=== PATIENT | male | born 1985 | race Two or more races ===

== ENCOUNTER 2023-04-07 10:48 | Emergency (ER) | payer MEDICAID ==
[~2023-04-07] VITALS: Ht 167.6 cm; Wt 73.4 kg
[2023-04-07 10:54] VITALS: BP 140/87
== END 2023-04-07 12:03 | disposition home or self-care (01) ==
LOC: ER 10:48
DX: S01.01XD Laceration without foreign body of scalp, subsequent encounter (principal); X58.XXXD Exposure to other specified factors, subsequent encounter

== ENCOUNTER 2025-04-28 10:52 | Emergency (ER) | payer MEDICAID ==
[~2025-04-28] VITALS: Ht 167.6 cm; Wt 95.4 kg
[2025-04-28] MEDS: KETOROLAC TROMETH 60MG/2ML VIAL IM ONE (13:00)
--- NOTE | 2025-04-28 13:14 | ED.PDOC ---
Musculoskeletal HPI Comments 39 year old male with no past medical history presents to the emergency department with a chief complaint of Rt foot pain onset 1 day. Patient states he was walking up stairs, when foot got stuck, twisted RT foot. Patient is currently experiencing RT foot pain, worsens with ambulation. Rates pain 7/10. No other symptoms or modifying factors present at this time. Denies previous surgeries to the foot Denies fever chills night sweats nausea vomiting Denies LOC, head injury Denies knee pain Denies numbness/tingling Chief Complaint: Lower Extremity Time Seen by MD: 12:45 Primary Care Provider: NONE Reviewed Notes: Nurses Notes, Medications, Allergies Allergies: Coded Allergies: NO KNOWN ALLERGIES (Unverified , 04/07/23) Home Meds Active Scripts Naproxen (Naproxen) 500 Mg Tab, 500 MG PO BIDPC for 10 Days, #20 TAB 0 Refills Prov:SHERI KEE NP 04/28/25 Information Source: Patient, Relative Mode of Arrival: Wheelchair Location: Right Extremity Location: Foot Timing: Days Prehospital treatment: None Severity: Moderate Able to Move Extremity: Yes Bear Weight: Limited Pain: Moderate Mechanism: Twisting Onset of Symptoms: After Trauma Symptoms: Swelling, Pain DVT Risk Factors: NONE Associated signs and symptoms: Foot pain Past Medical History PAST MEDICAL HISTORY: Denies Surgical History: Denies all surgeries Family History Family History: Reviewed,noncontributory to illness Social History Smoker: Non-Smoker Alcohol: Denies ETOH Use Drugs: Denies Drug Use Lives In: Home All Other Systems: Reviewed and Negative (as per HPI) Physical Exam General Appearance: Normal HEENT: Normal ENT Inspection, Pharynx Normal, TMs Normal Neck: Full Range of Motion, Non-Tender, Normal, Normal Inspection Respiratory: Chest Non-Tender, Lungs Clear, No Accessory Muscle Use, No Respiratory Distress, Normal Breath Sounds Cardiovascular: No Edema, No JVD, No Murmur, No Gallop, Normal Peripheral Pulses, Regular Rate/Rhythm Breast Exam: Deferred Gastrointestinal: No Organomegaly, Non Tender, No Pulsatile Mass, Normal Bowel Sounds, Soft Genitalia: Deferred Pelvic: Deferred Rectal: Deferred Extremities: No calf tenderness, Normal capillary refill, No pedal edema Musculoskeletal : Location: Right Extremity Location: Foot (no deformity on insepction, no echymosis, no open wounds, pain with dorsal/plantar flexion, TTP,inferior extensor retiniculum) Apperance: Normal Neurologic: Alert, aircraft powerplant repairer II-XII nml as Tested, No Motor Deficits, Normal Affect, Normal Mood, No Sensory Deficits Cerebellar Function: Normal Reflexes: Normal Skin: Dry, Normal Color, Warm Lymphatic: No Adenopathy Was a procedure done? Was a procedure done?: No X-Ray, Labs, Meds, VS Vital Signs Date Time Temp Pulse Resp B/P (MAP) Pulse Ox O2 Delivery O2 Flow Rate FiO2 04/28/25 13:36 98.1 80 18 124/87 (99) 97 98.1 04/28/25 11:08 98.1 90 16 121/71 (88) 96 98.1 Current Medications Medications (Trade) Dose Ordered Sig/Valentina Route Start Time Stop Time Status Last Admin Ketorolac Tromethamine (Toradol Injection) 60 mg ONCE ONCE IM 04/28/25 13:00 04/28/25 13:01 DC 04/28/25 13:00 [place] [id number] Ph: [phone] DIAGNOSTIC IMAGING Diagnostic Imaging Report : [id number] Signed PATIENT: STEPAN TROTTER OCACCT: [id number] UNIT: [id number] : 1985 LOC: ER ROOM / BED: / AGE / SEX: 39 / M ADM STATUS: REG ER SERVICE 1249 ORDERING PHYSICIAN: SHERI KEE NP PROCEDURE(s): RFOOT - R FOOT 3 VIEW XRAY REASON: R/o fracture ORDER NUMBER(s): [id number], ACCESSION NUMBER(s): [id number] EXAM: XY R FOOT 3 VIEW XRAY HISTORY: R/o fracture COMPARISON: None TECHNIQUE: Three views of the right foot were performed. FINDINGS: There is a tiny calcification projecting lateral to the 1st metatarsal head on the AP and oblique films. No other evidence of acute fracture about the right foot. Probable old healed fracture of the right 1st distal phalangeal tuft. No significant degenerative changes. Plantar calcaneal bone spur, Achilles insertion enthesophyte, and accessory navicular bone are incidentally noted. IMPRESSION: 1. Tiny calcification along the lateral margin of the 1st metatarsal head which may be due to avulsion fracture or soft tissue calcification. Correlate with focal tenderness. 2. Old healed fracture of the right great toe distal phalangeal tuft. ATED BY: ANSHU EAGLE MD DICTATED DATE/TIME: 04/28/251324 SIGNED BY: ANSHU EAGLE MD SIGNED DATE/TIME: 04/28/25 1325 CC: X-Ray, Labs, Meds, VS Comment 39 year old male with no past medical history presents to the emergency department with a chief complaint of Rt foot pain onset 1 day. Patient arrives alert and oriented, ABC's intact, afebrile, vital signs stable, saturating well in room air Diagnostic imaging ordered by me and results interpreted by radiology : R FOOT 3 VIEW XRAY: IMPRESSION: 1. Tiny calcification along the lateral margin of the 1st metatarsal head which may be due to avulsion fracture or soft tissue calcification. Correlate with focal tenderness. 2. Old healed fracture of the right great toe distal phalangeal tuft. Patient was given: Ketorolac 60 mg IM. Tolerated medications with no adverse reaction. Additional MDM Review of External, Non-ED records: External records reviewed. Discussion with independent historian (EMS, family) history obtained from the patient/parents (if applicable) at bedside Chronic conditions affecting care: None Social determinants of health affecting care: None Consideration of admission (observation or admission): I considered escalation of care to admission for this patient, however given the reassuring workup, the patient is safe for outpatient management. Time of 1ST Reevaluation: 13:15 Reevaluation 1ST: Improved Patient Education/Counseling: Diagnosis, Treatment Family Education/Counseling: Diagnosis, Treatment Departure 1 Departure Time of Disposition: 13:43 Impression: Primary Impression: Foot sprain Qualified Codes: S93.601A - Unspecified sprain of right foot, initial encounter Disposition: HOME / SELF CARE / HOMELESS Condition: Stable e-Prescriptions Naproxen (Naproxen) 500 Mg Tab 500 MG PO BIDPC for 10 Days, #20 TAB 0 Refills Prov: SHERI KEE BRILLIANDEER LOPPER 04/28/25 Critical Care Note Critical Care Time?: No Stability Stability form required: No Heart Score Heart Score: Heart Score Response (Comments) Value History N/A 0 EKG N/A 0 Age N/A 0 Risk Factors N/A 0 Troponin N/A 0 Total 0 I personally scribed for SHERI KEE NP ([email or web address]) on 04/28/25 at 13:14. Electronically submitted by Deedee Desir ([email or web address]). I personally scribed for SHERI KEE NP ([email or web address]) on 04/28/25 at 15:36. Electr onically submitted by Deedee Desir ([email or web address]). SHERI KEE NP Apr 28, 2025 13:14
--- NOTE | 2025-04-28 13:27 | DVH ---
EXAM: XY R FOOT 3 VIEW XRAY HISTORY: R/o fracture COMPARISON: None TECHNIQUE: Three views of the right foot were performed. FINDINGS: There is a tiny calcification projecting lateral to the 1st metatarsal head on the AP and oblique milo ms. No other evidence of acute fracture about the right foot. Probable old healed fracture of the rig ht 1st distal phalangeal tuft. No significant degenerative changes. Plantar calcaneal bone spur, Achi lles insertion enthesophyte, and accessory navicular bone are incidentally noted. IMPRESSION: 1. Tiny calcification along the lateral margin of the 1st metatarsal head which may be due to avulsio n fracture or soft tissue calcification. Correlate with focal tenderness. 2. Old healed fracture of the right great toe distal phalangeal tuft.
[2025-04-28 13:36] VITALS: BP 124/87; PULSE 80; RESP 18; TEMP 98.1; O2SAT 97
[2025-04-28] MEDS ORDERED: NAPR-746 PO (13:43)
== END 2025-04-28 14:07 | disposition home or self-care (01) ==
LOC: ER 10:52
DX: S93.601A Unspecified sprain of right foot, initial encounter (principal); Z79.899 Other long term (current) drug therapy; W17.89XA Other fall from one level to another, initial encounter; Y93.01 Activity, walking, marching and hiking; Y92.89 Other specified places as the place of occurrence of the external cause; Y99.8 Other external cause status
CPT/HCPCS: 73630; 96372; 99283; J1885